=== PATIENT | male | born 1995 | race Caucasian/White ===

== ENCOUNTER → 2020-03-25 | Outpatient (CLI) | payer OTHER ==
--- NOTE | 2020-03-25 19:54 | CT ---
EXAMINATION TYPE: CT foot LT wo con DATE OF EXAM: 03/25/2020 COMPARISON: None. HISTORY: Pain in left foot CT DLP: 195 mGycm Automated exposure control for dose reduction was used. FINDINGS: Hindfoot structures are preserved. Ankle mortise symmetry is maintained. Distal Achilles tendon is in tact. Plantar fascia is intact. Normal sinus tarsi fat. Midfoot structures show focal moderate to severe narrowing base of third metatarsal with the lateral cuneiform. There is also advanced narrowing with some ankylosis base of second metatarsal with the mi ddle cuneiform. Base of first metatarsal articulation with medial cuneiform is within normal limits. 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 Correlate clinically. Some flexion of the toes is present. There is some varus positioning of the distal fourth and fifth t oes. There is hallux valgus positioning first metatarsophalangeal joint. There is additional valgus p ositioning second and third toes. Mild plantar surface subcutaneous edema. No focal fluid collection. Muscle bulk maintained. IMPRESSION: Midfoot abnormality base of second and third metatarsals as detailed above
--- NOTE | 2020-03-26 07:32 | MR ---
EXAMINATION TYPE: MR ankle RT wo con DATE OF EXAM: 03/25/2020 COMPARISON: None. HISTORY: Left ankle pain x 8 mos, no trauma. Standard multiplanar, multisequence MRI departmental protocol Multiplanar, multisequence images of the left ankle were acquired. FINDINGS: Distal Achilles tendon is intact. Mild edema deep to the Achilles tendon before insertion j ust anterior to the muscle bulk is present. Visualized plantar fascia is intact. Small posterior tibiotalar joint effusion. Peroneus brevis and longus tendons are intact. Flexor tend ons along posterior medial aspect of the ankle are intact. Extensor tendons anteriorly are intact. Anterior tibial talar and the anterior talofibular ligaments are intact. Ankle mortise symmetry is pr eserved. Medial deltoid ligament is intact. Normal sinus tarsi fat is seen. For patient's age there is unusual mild to moderate spurring and narrowing throughout the hindfoot an d midfoot articulations. Findings greatest at the talonavicular articulation. There is abnormal edema involving the anterior talus and its articulation with the navicular bone. Thickening of the volar l igament at this level is identified. Some early erosive changes noted. Base of the Lisfranc joints sh ow mild narrowing. IMPRESSION: No ligamentous or tendon tear. 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
== END | disposition home or self-care (01) ==
LOC: RADCTMAIN 16:47
PROVIDERS: ATTEND Family Medicine
DX: M79.672 Pain in left foot (principal); R93.7 Abnormal findings on diagnostic imaging of other parts of musculoskeletal system; M20.12 Hallux valgus (acquired), left foot

== ENCOUNTER → 2020-04-23 | Outpatient (CLI) | payer OTHER | END | disposition home or self-care (01) | LOC: LABWHC1 16:15 | PROVIDERS: ATTEND Family Medicine | DX: R50.9 Fever, unspecified (principal); R07.9 Chest pain, unspecified | CPT/HCPCS: U0003; C9803 ==

== ENCOUNTER → 2020-07-21 | Outpatient (CLI) | payer OTHER ==
--- NOTE | 2020-07-21 14:22 | US ---
EXAMINATION TYPE: US abdomen complete DATE OF EXAM: 07/21/2020 COMPARISON: NONE CLINICAL HISTORY: R79.89 Elevated liver enzymes. EXAM MEASUREMENTS: Liver Length: 15.8 cm Gallbladder Wall: 0.2 cm CBD: 0.2 cm Spleen: 12.0 cm Right Kidney: 9.2 x 4.6 x 2.5 cm Left Kidney: 11.0 x 5.8 x 5.1 cm Pancreas: Tail obscured by overlying bowel gas Liver: wnl Gallbladder: No stones seen Evidence for sonographic Almodovar's sign: No CBD: wnl Spleen: wnl Right Kidney: Lower limits of normal in size. No hydronephrosis or masses seen Left Kidney: No hydronephrosis or masses seen Upper IVC: wnl Abd Aorta: wnl The visualized liver is homogenous. The intrahepatic portion of the IVC and visualized abdominal aor ta are within normal limits. There is no evidence of shadowing mobile cholelithiasis. Common bile d uct is unremarkable. The visualized portions of the pancreas are homogenous. Portions of distal body and tail obscured by overlying bowel gas. The spleen is unremarkable. Kidneys are symmetric and fr ee of hydronephrosis. No renal lesions are seen. IMPRESSION: No worrisome intrahepatic mass or intrahepatic ductal dilatation.
== END ==
LOC: RADUSWWP 07:15
PROVIDERS: ATTEND Family Medicine
DX: R79.89 Other specified abnormal findings of blood chemistry (principal)
CPT/HCPCS: 76700